=== PATIENT | female | born 1935 | race Caucasian/White ===

== ENCOUNTER 2018-10-05 11:32 | Inpatient (IN) ==
[2018-10-05] MEDS ORDERED: ONDANSETRON 4 MG/2 ML VIAL IV STA (11:42)
[2018-10-05] MEDS ORDERED: SODIUM CHLORIDE 0.9% 1,000 ML IV STA ×2 (11:42→13:17)
[2018-10-05] MEDS ORDERED: fentaNYL 100 MCG/2 ML VIAL IV STA (11:43)
[2018-10-05 11:54] LABS: Basophils % 0.1 % (0.0-0.8); Hematocrit 30.9 VOL% (35.7-47.0); Hemoglobin 9.4 GM/DL (12.0-16.0); Immature Granulocytes % 0.6 %; Immature Granulocytes Absolute 0.09 #; Lymphocytes # 0.6 10*3/uL (1.4-4.0); Lymphocytes % 3.7 % (21.3-54.2); Mean Corpuscular HGB Conc 30.4 GM/DL (32-36); Mean Corpuscular Volume 96.6 FL (87-102); Monocytes % 12.5 % (1.7-12.7); Neutrophils % 83.1 % (38.7-73.9); Platelet Count 356 T/CUMM (130-400); Red Cell Distribution Width 16.2 % (9.3-17.3); White Blood Count 15.6 T/CUMM (4-12)
[2018-10-05 12:13] LABS: Apearance,Urine Slightly Hazy (Clear); Bacteria,Urine Many /HPF (Few); Bilirubin,Urine Negative (Negative); Blood, Urine Negative (Negative); Glucose,Urine (UA) Negative (Negative); Hyaline Casts,Urine 13 /LPF (0-3); Ketones,Urine Negative (Negative); Mucus,Urine Few /LPF (Occasional); Nitrite,Urine Negative (Negative); Protein,Urine Negative; Urine Color Yellow (Yellow); Urine Specific Gravity 1.015 (1.001-1.035); Urine Urobilinogen < 2.0 EU/DL (0.2-1.0); WBC,Urine 4 /HPF (0-6)
[2018-10-05 12:15] LABS: Alanine Aminotransferase 13 U/L (13-56); Alkaline Phosphatase 74 U/L (45-117); Aspartate Amino Transferase 19 U/L (0-37); Blood Urea Nitrogen 38 MG/DL (7-18); Calcium 8.4 MG/DL (8.5-10.1); Glucose 179 MG/DL (74-106); Osmolality,Calculated 289.5 MOS/KG (273-304); Total Protein 5.5 G/DL (6.4-8.3)
[2018-10-05] MEDS ORDERED: PIPERACILLIN/TAZOBACTAM 3,375 MG in SODIUM CHLORIDE 0.9% 100 ML IV STA (12:19)
[2018-10-05 12:20] LABS: Band Neutrophils 29 % (0-10); Lymphocytes 4 % (20-55); Platelet Estimate Normal; Segmented Neutrophils 59 % (50-85); Total Cells Counted 100
[2018-10-05 12:21] LABS: Anisocytosis 1+; Giant Platelets Few; Poikilocytosis 1+
[2018-10-05] MEDS ORDERED: ALBUTEROL/IPRATROPIUM 3 ML NEB RESP TX PRN (13:22)
[2018-10-05] MEDS ORDERED: ACETAMINOPHEN 325 MG TABLET PO PRN (13:22)
[2018-10-05] MEDS ORDERED: ONDANSETRON 4 MG/2 ML VIAL IV PRN (13:22)
[2018-10-05] MEDS ORDERED: SODIUM CHLORIDE 0.9% 1,900 ML IV ONE (13:26)
[2018-10-05] MEDS ORDERED: VANCOMYCIN INJ 1,000 MG in SODIUM CHLORIDE 0.9% 250 ML IV PRN (13:30)
[2018-10-05] MEDS ORDERED: LIDOCAINE 1%/EPI INJ 20 ML VIAL ONE (13:44)
[2018-10-05] MEDS ORDERED: BUPIVACAINE MPF 0.25% /EPI 30 ML VIAL ONE (13:44)
[2018-10-05] MEDS ORDERED: DEXTROSE 50% 25 GM/50 ML VIAL IV PRN (13:50)
[2018-10-05] MEDS ORDERED: GLUCAGON 1 MG VIAL IM PRN (13:50)
[2018-10-05] MEDS: LACTATED RINGERS 1,000 ML IV SCH ×4 (14:00→22:11)
[2018-10-05] MEDS ORDERED: ALBUMIN 5% 12.5 GM/250 ML VIAL IV ONE (14:30)
[2018-10-05] MEDS ORDERED: CALCIUM CHLORIDE 1,000 MG/10 ML VIAL IV ONE (14:30)
[2018-10-05] MEDS ORDERED: SUGAMMADEX 200 MG/2 ML VIAL IV ONE (15:10)
[2018-10-05] MEDS ORDERED: GENTAMICIN INJ 80 MG in PREMIX 1 EACH IV PRN (15:12)
[2018-10-05] MEDS ORDERED: DESFLURANE 1 UNIT/15 MINUTE INH ONE (15:37)
[2018-10-05] MEDS ORDERED: ETOMIDATE 40 MG/20 ML VIAL IV ONE (15:38)
[2018-10-05] MEDS ORDERED: LACTATED RINGERS 1,000 ML IV ONE (15:38)
[2018-10-05] MEDS ORDERED: ONDANSETRON 4 MG/2 ML VIAL ONE (15:38)
[2018-10-05] MEDS ORDERED: fentaNYL 100 MCG/2 ML VIAL ONE ×2 (15:38)
[2018-10-05] MEDS ORDERED: ROCURONIUM 100 MG/10 ML VIAL IV ONE (15:38)
[2018-10-05 15:45] LABS: Apearance,Urine Slightly Hazy (Clear); Bacteria,Urine Many /HPF (Few); Bilirubin,Urine Negative (Negative); Blood, Urine Negative (Negative); Glucose,Urine (UA) Negative (Negative); Hyaline Casts,Urine 5 /LPF (0-3); Ketones,Urine Negative (Negative); Mucus,Urine Occasional /LPF (Occasional); Nitrite,Urine Negative (Negative); Protein,Urine Negative; RBC,Urine 3 /HPF (0-4); Urine Color Yellow (Yellow); Urine Specific Gravity 1.016 (1.001-1.035); Urine Urobilinogen < 2.0 EU/DL (0.2-1.0); WBC,Urine <1 /HPF (0-6)
[2018-10-05] MEDS ORDERED: GENTAMICIN INJ 180 MG in SODIUM CHLORIDE 0.9% 100 ML IV ONE (16:00)
[2018-10-05] MEDS ORDERED: VANCOMYCIN INJ 1,000 MG in SODIUM CHLORIDE 0.9% 250 ML IV ONE (17:00)
[2018-10-05] MEDS ORDERED: MAGNESIUM SULF RIDER 4 GM in PREMIX 1 EACH IV PRN (17:39)
[2018-10-05] MEDS: HYDROmorphone 2 MG/1 ML VIAL IV PRN ×3 (18:17→22:10)
[2018-10-05] MEDS: INSULIN LISPRO 100 UNIT/ML SUBCUT SCH ×2 (18:49→20:10)
[2018-10-06] MEDS: INSULIN LISPRO 100 UNIT/ML SUBCUT SCH ×6 (01:09→20:58)
[2018-10-06] MEDS: PIPERACILLIN/TAZOBACTAM 3,375 MG in SODIUM CHLORIDE 0.9% 100 ML IV SCH ×2 (01:16→11:40)
[2018-10-06] MEDS: HYDROmorphone 2 MG/1 ML VIAL IV PRN ×5 (02:20→20:57)
[2018-10-06 05:11] LABS: Basophils % 0.1 % (0.0-0.8); Hematocrit 23.8 VOL% (35.7-47.0); Hemoglobin 7.2 GM/DL (12.0-16.0); Immature Granulocytes % 0.6 %; Immature Granulocytes Absolute 0.05 #; Lymphocytes # 0.7 10*3/uL (1.4-4.0); Lymphocytes % 9.1 % (21.3-54.2); Mean Corpuscular HGB Conc 30.3 GM/DL (32-36); Mean Corpuscular Volume 96.7 FL (87-102); Mean Platelet Volume 10.7 FL (9.6-12.0); Monocytes % 10.9 % (1.7-12.7); Neutrophils % 79.3 % (38.7-73.9); Platelet Count 178 T/CUMM (130-400); Red Blood Count 2.46 MC/CUMM (3.8-5.5); Red Cell Distribution Width 16.3 % (9.3-17.3); White Blood Count 8.1 T/CUMM (4-12)
[2018-10-06 05:39] LABS: Band Neutrophils 4 % (0-10); Hypochromasia 1+; Lymphocytes 10 % (20-55); Platelet Estimate Normal; Reactive Lymphocytes Few; Segmented Neutrophils 78 % (50-85); Total Cells Counted 100
[2018-10-06 05:46] LABS: Albumin 2.6 G/DL (3.4-5.0); Bilirubin,Total 0.6 MG/DL (0.2-1.0); Calcium 8.6 MG/DL (8.5-10.1); Osmolality,Calculated 289.1 MOS/KG (273-304); Total Protein 4.9 G/DL (6.4-8.3)
[2018-10-06] MEDS: MAGNESIUM SULF RIDER 2 GM in PREMIX 1 EACH IV PRN (06:45)
[2018-10-06] MEDS: LACTATED RINGERS 1,000 ML IV SCH ×4 (06:45→21:35)
[2018-10-06] MEDS: PANTOPRAZOLE 40 MG VIAL IV SCH (08:38)
[2018-10-06] MEDS ORDERED: SODIUM CHLORIDE 0.9% 1,000 ML IV PRN (09:01)
[2018-10-06 16:41] LABS: Hematocrit 30.9 VOL% (35.7-47.0)
[2018-10-06 16:44] LABS: Hemoglobin 9.9 GM/DL (12.0-16.0)
[2018-10-06 22:51] LABS: Hematocrit 30.3 VOL% (35.7-47.0); Hemoglobin 9.5 GM/DL (12.0-16.0)
[2018-10-07] MEDS: LACTATED RINGERS 1,000 ML IV SCH ×4 (00:05→13:30)
[2018-10-07] MEDS: HYDROmorphone 2 MG/1 ML VIAL IV PRN ×5 (00:32→19:39)
[2018-10-07] MEDS: INSULIN LISPRO 100 UNIT/ML SUBCUT SCH ×6 (00:45→22:20)
[2018-10-07] MEDS ORDERED: DEXTROSE 10% 250 ML IV ONE (00:50)
[2018-10-07] MEDS: DEXTROSE 10% 250 ML BAG IV PRN ×2 (01:00→04:22)
[2018-10-07] MEDS: PIPERACILLIN/TAZOBACTAM 3,375 MG in SODIUM CHLORIDE 0.9% 100 ML IV SCH ×2 (02:35→13:39)
[2018-10-07 06:01] LABS: Basophils % 0.2 % (0.0-0.8); Eosinophils % 0.1 % (0.00-10.9); Hematocrit 30.8 VOL% (35.7-47.0); Hemoglobin 9.6 GM/DL (12.0-16.0); Immature Granulocytes % 0.8 %; Immature Granulocytes Absolute 0.07 #; Lymphocytes # 0.5 10*3/uL (1.4-4.0); Lymphocytes % 5.4 % (21.3-54.2); Mean Corpuscular HGB Conc 31.2 GM/DL (32-36); Mean Corpuscular Volume 94.2 FL (87-102); Mean Platelet Volume 10.5 FL (9.6-12.0); Monocytes % 9.1 % (1.7-12.7); Neutrophils % 84.4 % (38.7-73.9); Platelet Count 193 T/CUMM (130-400); Red Blood Count 3.27 MC/CUMM (3.8-5.5); Red Cell Distribution Width 16.3 % (9.3-17.3); White Blood Count 9.2 T/CUMM (4-12)
[2018-10-07 06:11] LABS: Gentamicin,Random 0.7 UG/ML; Vancomycin,Random 5.1 UG/ML
[2018-10-07] MEDS: PANTOPRAZOLE 40 MG VIAL IV SCH (09:07)
[2018-10-07 10:34] LABS: Calcium 8.3 MG/DL (8.5-10.1); Osmolality,Calculated 290.1 MOS/KG (273-304)
[2018-10-07] MEDS: VANCOMYCIN INJ 1,000 MG in SODIUM CHLORIDE 0.9% 250 ML IV SCH (10:48)
[2018-10-07] MEDS: FLUCONAZOLE INJ 200 MG in PREMIX 1 EACH IV SCH (12:14)
[2018-10-07] MEDS: SODIUM HYPOCHLORITE 0.25% IRRIG 473 ML BOTTLE TOP SCH (15:23)
[2018-10-08] MEDS: METOPROLOL TARTRATE 5 MG/5 ML VIAL IV PRN ×2 (00:09→13:03)
[2018-10-08] MEDS: LACTATED RINGERS 1,000 ML IV SCH ×2 (00:52→22:31)
[2018-10-08] MEDS: INSULIN LISPRO 100 UNIT/ML SUBCUT SCH ×6 (00:52→21:10)
[2018-10-08] MEDS: PIPERACILLIN/TAZOBACTAM 3,375 MG in SODIUM CHLORIDE 0.9% 100 ML IV SCH ×2 (02:43→13:52)
[2018-10-08] MEDS: HYDROmorphone 2 MG/1 ML VIAL IV PRN ×2 (06:29→19:32)
[2018-10-08] MEDS: DEXTROSE 10% 250 ML BAG IV PRN (08:29)
[2018-10-08] MEDS: PANTOPRAZOLE 40 MG VIAL IV SCH (09:45)
[2018-10-08] MEDS: SODIUM HYPOCHLORITE 0.25% IRRIG 473 ML BOTTLE TOP SCH (09:58)
[2018-10-08] MEDS: CHLORHEXIDINE 4% SOLN 118 ML BOTTLE TOP SCH (09:59)
[2018-10-08] MEDS: VANCOMYCIN INJ 1,000 MG in SODIUM CHLORIDE 0.9% 250 ML IV SCH (11:33)
[2018-10-08] MEDS: FLUCONAZOLE INJ 200 MG in PREMIX 1 EACH IV SCH (12:42)
[2018-10-08] MEDS ORDERED: cloNIDine 0.1 MG TABLET PO PRN (13:34)
[2018-10-08] MEDS: amLODIPine 10 MG TABLET PO SCH (13:52)
[2018-10-08] MEDS: SERTRALINE 100 MG TABLET PO SCH (21:31)
[2018-10-08] MEDS: METOPROLOL TARTRATE 25 MG TABLET PO SCH (21:31)
[2018-10-09] MEDS: INSULIN LISPRO 100 UNIT/ML SUBCUT SCH ×6 (01:03→20:12)
[2018-10-09] MEDS: PIPERACILLIN/TAZOBACTAM 3,375 MG in SODIUM CHLORIDE 0.9% 100 ML IV SCH ×3 (01:05→22:14)
[2018-10-09 05:27] LABS: Basophils % 0.4 % (0.0-0.8); Eosinophils # 0.2 10*3/uL (0.0-0.87); Eosinophils % 1.9 % (0.00-10.9); Hematocrit 33.3 VOL% (35.7-47.0); Hemoglobin 10.7 GM/DL (12.0-16.0); Immature Granulocytes % 2.1 %; Immature Granulocytes Absolute 0.21 #; Lymphocytes # 0.8 10*3/uL (1.4-4.0); Lymphocytes % 8.4 % (21.3-54.2); Mean Corpuscular HGB Conc 32.1 GM/DL (32-36); Mean Platelet Volume 9.8 FL (9.6-12.0); Monocytes % 10.5 % (1.7-12.7); Neutrophils % 76.7 % (38.7-73.9); Platelet Count 224 T/CUMM (130-400); Red Blood Count 3.66 MC/CUMM (3.8-5.5); Red Cell Distribution Width 15.4 % (9.3-17.3); White Blood Count 9.9 T/CUMM (4-12)
[2018-10-09 05:59] LABS: Albumin 2.1 G/DL (3.4-5.0); Calcium 8.8 MG/DL (8.5-10.1); Osmolality,Calculated 281.3 MOS/KG (273-304); Total Protein 5.4 G/DL (6.4-8.3)
[2018-10-09] MEDS: POTASSIUM CHLORIDE RIDER 10 MEQ in PREMIX 1 EACH IV PRN ×5 (06:33→18:23)
[2018-10-09] MEDS: PANTOPRAZOLE 40 MG VIAL IV SCH (08:41)
[2018-10-09] MEDS: buPROPion SR 150 MG TABLET PO SCH (09:12)
[2018-10-09] MEDS: METOPROLOL TARTRATE 25 MG TABLET PO SCH ×2 (09:13→20:26)
[2018-10-09] MEDS: LOSARTAN 50 MG TABLET PO SCH (09:16)
[2018-10-09] MEDS: SERTRALINE 100 MG TABLET PO SCH ×2 (09:16→20:26)
[2018-10-09] MEDS: amLODIPine 10 MG TABLET PO SCH (09:16)
[2018-10-09] MEDS: SODIUM HYPOCHLORITE 0.25% IRRIG 473 ML BOTTLE TOP SCH (09:45)
[2018-10-09] MEDS: CHLORHEXIDINE 4% SOLN 118 ML BOTTLE TOP SCH (09:45)
[2018-10-09] MEDS: VANCOMYCIN INJ 1,000 MG in SODIUM CHLORIDE 0.9% 250 ML IV SCH (12:21)
[2018-10-09] MEDS: FLUCONAZOLE INJ 200 MG in PREMIX 1 EACH IV SCH (13:34)
[2018-10-09] MEDS: PHENOL 1.4% THROAT SPRAY 177 ML BOTTLE PO PRN ×2 (18:09→20:26)
[2018-10-10] MEDS: INSULIN LISPRO 100 UNIT/ML SUBCUT SCH ×6 (00:42→21:27)
[2018-10-10 05:45] LABS: Basophils # 0.1 10*3/uL (0.0-0.2); Basophils % 0.6 % (0.0-0.8); Eosinophils # 0.2 10*3/uL (0.0-0.87); Eosinophils % 2.2 % (0.00-10.9); Hematocrit 33.2 VOL% (35.7-47.0); Hemoglobin 10.5 GM/DL (12.0-16.0); Immature Granulocytes % 3.7 %; Immature Granulocytes Absolute 0.33 #; Lymphocytes # 1.1 10*3/uL (1.4-4.0); Lymphocytes % 11.7 % (21.3-54.2); Mean Corpuscular HGB Conc 31.6 GM/DL (32-36); Mean Corpuscular Volume 92.7 FL (87-102); Mean Platelet Volume 10.2 FL (9.6-12.0); Monocytes % 13.3 % (1.7-12.7); Neutrophils % 68.5 % (38.7-73.9); Platelet Count 246 T/CUMM (130-400); Red Blood Count 3.58 MC/CUMM (3.8-5.5); Red Cell Distribution Width 15.6 % (9.3-17.3)
[2018-10-10 05:59] LABS: Albumin 2.1 G/DL (3.4-5.0); Bilirubin,Total 0.4 MG/DL (0.2-1.0); Calcium 8.5 MG/DL (8.5-10.1); Osmolality,Calculated 279.3 MOS/KG (273-304); Total Protein 5.2 G/DL (6.4-8.3)
[2018-10-10] MEDS: PIPERACILLIN/TAZOBACTAM 3,375 MG in SODIUM CHLORIDE 0.9% 100 ML IV SCH (06:33)
[2018-10-10] MEDS: METOPROLOL TARTRATE 25 MG TABLET PO SCH ×2 (08:12→21:27)
[2018-10-10] MEDS: buPROPion SR 150 MG TABLET PO SCH (08:12)
[2018-10-10] MEDS: SERTRALINE 100 MG TABLET PO SCH ×2 (08:12→21:27)
[2018-10-10] MEDS: LOSARTAN 50 MG TABLET PO SCH (08:12)
[2018-10-10] MEDS: PANTOPRAZOLE 40 MG VIAL IV SCH (08:12)
[2018-10-10] MEDS: CHLORHEXIDINE 4% SOLN 118 ML BOTTLE TOP SCH (08:13)
[2018-10-10] MEDS: amLODIPine 10 MG TABLET PO SCH (08:13)
[2018-10-10] MEDS: SODIUM HYPOCHLORITE 0.25% IRRIG 473 ML BOTTLE TOP SCH (08:13)
[2018-10-10] MEDS: LACTATED RINGERS 1,000 ML IV SCH ×4 (08:13→09:54)
[2018-10-10] MEDS: FLUCONAZOLE INJ 200 MG in PREMIX 1 EACH IV SCH (09:30)
[2018-10-10] MEDS: cefTRIAXone 1,000 MG in SYRINGE 1 EACH IV SCH (09:30)
[2018-10-10] MEDS: POTASSIUM CHLORIDE RIDER 10 MEQ in PREMIX 1 EACH IV PRN ×4 (09:31→18:49)
[2018-10-10] MEDS: MAGNESIUM SULF RIDER 2 GM in PREMIX 1 EACH IV PRN (22:35)
[2018-10-10] MEDS: HYDROmorphone 2 MG/1 ML VIAL IV PRN (22:35)
[2018-10-11] MEDS: INSULIN LISPRO 100 UNIT/ML SUBCUT SCH ×6 (00:25→21:19)
[2018-10-11] MEDS: MAGNESIUM SULF RIDER 2 GM in PREMIX 1 EACH IV PRN (04:48)
[2018-10-11 05:34] LABS: Basophils % 0.4 % (0.0-0.8); Eosinophils # 0.2 10*3/uL (0.0-0.87); Eosinophils % 2.4 % (0.00-10.9); Hematocrit 30.5 VOL% (35.7-47.0); Hemoglobin 9.7 GM/DL (12.0-16.0); Immature Granulocytes Absolute 0.36 #; Lymphocytes # 1.4 10*3/uL (1.4-4.0); Lymphocytes % 15.8 % (21.3-54.2); Mean Corpuscular HGB Conc 31.8 GM/DL (32-36); Mean Corpuscular Volume 93.3 FL (87-102); Monocytes % 12.1 % (1.7-12.7); Neutrophils % 65.3 % (38.7-73.9); Platelet Count 226 T/CUMM (130-400); Red Blood Count 3.27 MC/CUMM (3.8-5.5); Red Cell Distribution Width 15.6 % (9.3-17.3)
[2018-10-11 05:55] LABS: Calcium 7.9 MG/DL (8.5-10.1); Osmolality,Calculated 279.3 MOS/KG (273-304)
[2018-10-11] MEDS: cefTRIAXone 1,000 MG in SYRINGE 1 EACH IV SCH (09:00)
[2018-10-11] MEDS: PANTOPRAZOLE 40 MG VIAL IV SCH (09:00)
[2018-10-11] MEDS: METOPROLOL TARTRATE 25 MG TABLET PO SCH ×2 (09:01→21:08)
[2018-10-11] MEDS: LOSARTAN 50 MG TABLET PO SCH (09:01)
[2018-10-11] MEDS: buPROPion SR 150 MG TABLET PO SCH (09:01)
[2018-10-11] MEDS: SERTRALINE 100 MG TABLET PO SCH ×2 (09:01→21:08)
[2018-10-11] MEDS: amLODIPine 10 MG TABLET PO SCH (09:01)
[2018-10-11] MEDS: CHLORHEXIDINE 4% SOLN 118 ML BOTTLE TOP SCH (09:02)
[2018-10-11] MEDS: FLUCONAZOLE INJ 200 MG in PREMIX 1 EACH IV SCH (09:16)
[2018-10-11] MEDS: HYDROmorphone 2 MG/1 ML VIAL IV PRN ×4 (09:53→21:14)
[2018-10-11] MEDS: POTASSIUM CHLORIDE RIDER 10 MEQ in PREMIX 1 EACH IV PRN (13:48)
[2018-10-12] MEDS: INSULIN LISPRO 100 UNIT/ML SUBCUT SCH ×6 (00:15→20:00)
[2018-10-12] MEDS: POTASSIUM CHLORIDE RIDER 10 MEQ in PREMIX 1 EACH IV PRN (07:15)
[2018-10-12] MEDS: cefTRIAXone 1,000 MG in SYRINGE 1 EACH IV SCH (09:24)
[2018-10-12] MEDS: PANTOPRAZOLE 40 MG VIAL IV SCH (09:24)
[2018-10-12] MEDS: SERTRALINE 100 MG TABLET PO SCH ×2 (09:25→21:38)
[2018-10-12] MEDS: buPROPion SR 150 MG TABLET PO SCH (09:25)
[2018-10-12] MEDS: amLODIPine 10 MG TABLET PO SCH (09:25)
[2018-10-12] MEDS: METOPROLOL TARTRATE 25 MG TABLET PO SCH ×2 (09:26→21:38)
[2018-10-12] MEDS: FLUCONAZOLE INJ 200 MG in PREMIX 1 EACH IV SCH (09:26)
[2018-10-12] MEDS: LOSARTAN 50 MG TABLET PO SCH (09:26)
[2018-10-12] MEDS: CHLORHEXIDINE 4% SOLN 118 ML BOTTLE TOP SCH (09:27)
[2018-10-12 09:49] LABS: Hematocrit 34.7 VOL% (35.7-47.0); Hemoglobin 10.7 GM/DL (12.0-16.0)
[2018-10-12] MEDS ORDERED: TUBERCULIN SKIN TEST 0.1 ML SYRINGE INTRADERM ONE (12:00)
[2018-10-12] MEDS ORDERED: POTASSIUM CHLORIDE 20 MEQ TABLET PO PRN (14:57)
[2018-10-12] MEDS: HYDROmorphone 2 MG/1 ML VIAL IV PRN (21:45)
[2018-10-13] MEDS: HYDROmorphone 2 MG/1 ML VIAL IV PRN (01:10)
[2018-10-13] MEDS: INSULIN LISPRO 100 UNIT/ML SUBCUT SCH ×5 (04:00→16:25)
[2018-10-13] MEDS: CHLORHEXIDINE 4% SOLN 118 ML BOTTLE TOP SCH (09:00)
[2018-10-13] MEDS: amLODIPine 10 MG TABLET PO SCH (09:23)
[2018-10-13] MEDS: METOPROLOL TARTRATE 25 MG TABLET PO SCH (09:23)
[2018-10-13] MEDS: SERTRALINE 100 MG TABLET PO SCH (09:23)
[2018-10-13] MEDS: buPROPion SR 150 MG TABLET PO SCH (09:24)
[2018-10-13] MEDS: PANTOPRAZOLE 40 MG VIAL IV SCH (09:24)
[2018-10-13] MEDS: LOSARTAN 50 MG TABLET PO SCH (09:24)
[2018-10-13] MEDS: cefTRIAXone 1,000 MG in SYRINGE 1 EACH IV SCH (09:28)
[2018-10-13] MEDS: FLUCONAZOLE INJ 200 MG in PREMIX 1 EACH IV SCH (09:40)
[2018-10-13 11:10] VITALS: BP 155/87
== END 2018-10-13 16:20 | DRG 326 ==
LOC: EDUNIT# → N.ED 11:32 → N.EDINP 13:22 → N.ICU 14:51 → N.3E 10-06 14:32
PROVIDERS: ADMIT Surgery; ATTEND Surgery

== ENCOUNTER 2018-12-29 18:32 | Inpatient (IN) ==
[2018-12-29] MEDS ORDERED: ONDANSETRON 4 MG/2 ML VIAL IV STA (18:51)
[2018-12-29] MEDS ORDERED: KETOROLAC 30 MG/1 ML VIAL IV STA (18:51)
[2018-12-29] MEDS ORDERED: MAGNESIUM HYDROXIDE SUSP 30 ML UDCUP PO PRN (21:10)
[2018-12-29] MEDS ORDERED: ceFAZolin 1,000 MG in SYRINGE 1 EACH IV ONE (21:10)
[2018-12-29] MEDS ORDERED: fentaNYL 100 MCG/2 ML VIAL IV PRN (21:10)
[2018-12-29 21:14] LABS: Basophils # 0.1 10*3/uL (0.0-0.2); Basophils % 0.3 % (0.0-0.8); Eosinophils # 0.1 10*3/uL (0.0-0.87); Eosinophils % 0.7 % (0.00-10.9); Hematocrit 32.3 VOL% (35.7-47.0); Hemoglobin 10.1 GM/DL (12.0-16.0); Immature Granulocytes % 1.2 %; Immature Granulocytes Absolute 0.22 #; Lymphocytes # 2.9 10*3/uL (1.4-4.0); Lymphocytes % 15.9 % (21.3-54.2); Mean Corpuscular HGB Conc 31.3 GM/DL (32-36); Mean Corpuscular Volume 89.2 FL (87-102); Monocytes % 9.3 % (1.7-12.7); Neutrophils % 72.6 % (38.7-73.9); Platelet Count 358 T/CUMM (130-400); Red Blood Count 3.62 MC/CUMM (3.8-5.5); Red Cell Distribution Width 15.2 % (9.3-17.3); White Blood Count 18.4 T/CUMM (4-12)
[2018-12-29 21:18] LABS: INR 0.9; PT Patient Result 10.3 SECS (9.6-12.2)
[2018-12-29 21:27] LABS: Alanine Aminotransferase 15 U/L (13-56); Albumin 3.5 G/DL (3.4-5.0); Alkaline Phosphatase 96 U/L (45-117); Aspartate Amino Transferase 20 U/L (0-37); Bilirubin,Total < 0.39 MG/DL (0.2-1.0); Blood Urea Nitrogen 19 MG/DL (7-18); Calcium 9.6 MG/DL (8.5-10.1); Estimated Glom Filtration Rate 43 ML/MIN; Glucose 112 MG/DL (74-106); Osmolality,Calculated 275.8 MOS/KG (273-304); Total Protein 7.7 G/DL (6.4-8.3)
[2018-12-29] MEDS: hydrALAZINE 25 MG TABLET PO SCH (22:31)
[2018-12-29] MEDS: METOPROLOL TARTRATE 25 MG TABLET PO SCH (22:31)
[2018-12-29] MEDS: SERTRALINE 100 MG TABLET PO SCH (22:31)
[2018-12-29] MEDS: MAGNESIUM CHLORIDE 64 MG TABLET PO SCH (22:31)
[2018-12-29] MEDS: SODIUM CHLORIDE 0.9% 1,000 ML IV SCH (22:32)
[2018-12-29] MEDS: LATANOPROST 0.005% OPH SOLN 2.5 ML BOTTLE BOTH EYES SCH (23:20)
[2018-12-30] MEDS: SODIUM CHLORIDE 0.9% 1,000 ML IV SCH ×3 (07:12→19:42)
[2018-12-30] MEDS: amLODIPine 10 MG TABLET PO SCH (08:00)
[2018-12-30] MEDS: hydrALAZINE 25 MG TABLET PO SCH ×2 (08:00→20:54)
[2018-12-30] MEDS ORDERED: ceFAZolin 1,000 MG in SYRINGE 1 EACH IV ONE (08:00)
[2018-12-30] MEDS: METOPROLOL TARTRATE 25 MG TABLET PO SCH ×2 (08:00→20:54)
[2018-12-30] MEDS ORDERED: ROPIVACAINE 0.5% 30 ML VIAL ONE (09:36)
[2018-12-30] MEDS ORDERED: NEOMYCIN/POLYMYXIN/BACITRACIN OINT 28.4 GM TUBE TOP ONE (09:38)
[2018-12-30] MEDS ORDERED: ONDANSETRON 4 MG/2 ML VIAL ONE (10:09)
[2018-12-30] MEDS ORDERED: DEXAMETHASONE 4 MG/1 ML VIAL ONE (10:09)
[2018-12-30] MEDS ORDERED: PROPOFOL 200 MG/20 ML VIAL IV ONE (10:09)
[2018-12-30] MEDS ORDERED: LIDOCAINE 2% 5 ML VIAL ONE (10:09)
[2018-12-30] MEDS ORDERED: fentaNYL 100 MCG/2 ML VIAL ONE (10:09)
[2018-12-30] MEDS ORDERED: SEVOFLURANE 1 UNIT/15 MINUTE INH ONE (10:09)
[2018-12-30] MEDS ORDERED: KETOROLAC 30 MG/1 ML VIAL ONE (10:09)
[2018-12-30] MEDS ORDERED: ACETAMINOPHEN 1,000 MG/100 ML VIAL IV ONE (10:10)
[2018-12-30] MEDS ORDERED: GLYCOPYRROLATE 0.4 MG/2 ML VIAL ONE (10:10)
[2018-12-30] MEDS ORDERED: PHENYLEPHRINE 1 MG/10 ML SYRINGE IV ONE (10:10)
[2018-12-30] MEDS: HYDROmorphone 2 MG/1 ML VIAL IV PRN (13:40)
[2018-12-30] MEDS: ONDANSETRON 4 MG/2 ML VIAL IV PRN (13:41)
[2018-12-30] MEDS: MAGNESIUM CHLORIDE 64 MG TABLET PO SCH ×2 (16:09→20:54)
[2018-12-30] MEDS: SERTRALINE 100 MG TABLET PO SCH ×2 (16:09→20:54)
[2018-12-30] MEDS: buPROPion SR 150 MG TABLET PO SCH (16:10)
[2018-12-30] MEDS: ceFAZolin 1,000 MG in SYRINGE 1 EACH IV SCH ×2 (16:16→23:45)
[2018-12-30] MEDS: LOSARTAN 50 MG TABLET PO SCH (19:48)
[2018-12-30] MEDS: LATANOPROST 0.005% OPH SOLN 2.5 ML BOTTLE BOTH EYES SCH (20:54)
[2018-12-31] MEDS: FONDAPARINUX 2.5 MG/0.5 ML SYRINGE SUBCUT SCH (03:44)
[2018-12-31 05:16] LABS: Basophils % 0.2 % (0.0-0.8); Hematocrit 24.7 VOL% (35.7-47.0); Hemoglobin 7.7 GM/DL (12.0-16.0); Immature Granulocytes % 1.2 %; Immature Granulocytes Absolute 0.18 #; Lymphocytes # 1.1 10*3/uL (1.4-4.0); Lymphocytes % 6.9 % (21.3-54.2); Mean Corpuscular HGB Conc 31.2 GM/DL (32-36); Mean Corpuscular Volume 91.1 FL (87-102); Monocytes % 8.4 % (1.7-12.7); Neutrophils % 83.3 % (38.7-73.9); Platelet Count 244 T/CUMM (130-400); Red Blood Count 2.71 MC/CUMM (3.8-5.5); Red Cell Distribution Width 15.3 % (9.3-17.3); White Blood Count 15.5 T/CUMM (4-12)
[2018-12-31] MEDS: HYDROmorphone 2 MG/1 ML VIAL IV PRN ×2 (05:31→16:14)
[2018-12-31] MEDS: buPROPion SR 150 MG TABLET PO SCH (10:22)
[2018-12-31] MEDS: MAGNESIUM CHLORIDE 64 MG TABLET PO SCH ×2 (10:22→21:20)
[2018-12-31] MEDS: hydrALAZINE 25 MG TABLET PO SCH ×2 (10:23→21:21)
[2018-12-31] MEDS: SERTRALINE 100 MG TABLET PO SCH ×2 (10:23→21:20)
[2018-12-31] MEDS: METOPROLOL TARTRATE 25 MG TABLET PO SCH ×2 (10:23→21:20)
[2018-12-31] MEDS: amLODIPine 10 MG TABLET PO SCH (10:25)
[2018-12-31] MEDS ORDERED: diphenhydrAMINE CAP 25 MG CAPSULE PO PRN (10:54)
[2018-12-31] MEDS ORDERED: traMADol 50 MG TABLET PO PRN (12:00)
[2018-12-31 14:13] LABS: Hematocrit 26.6 VOL% (35.7-47.0); Hemoglobin 8.1 GM/DL (12.0-16.0)
[2018-12-31] MEDS: LOSARTAN 50 MG TABLET PO SCH (18:15)
[2018-12-31] MEDS ORDERED: methylPREDNISolone SOD SUC 40 MG/1 ML VIAL IV ONE (20:00)
[2018-12-31] MEDS ORDERED: LORazepam 2 MG/1 ML VIAL IV ONE (20:00)
[2018-12-31] MEDS: ALBUTEROL/IPRATROPIUM 3 ML NEB RESP TX PRN ×2 (20:13→20:31)
[2018-12-31 20:38] LABS: ABG Base Excess -4.4 MMOL/L (-2.5-2.5); ABG Oxygen Saturation 86.4 % (95-100); ABG PCO2 39.7 MM HG (35-48); ABG PH 7.341 (7.35-7.45); ABG PO2 54.6 MM HG (80-95); ABG TCO2 22.2 MMOL/L (23-27); Allen Test Positive; Pt O2 Delivery Device Simple Mask
[2018-12-31] MEDS ORDERED: FUROSEMIDE 20 MG/2 ML VIAL IV ONE ×2 (20:45→21:15)
[2018-12-31] MEDS: LATANOPROST 0.005% OPH SOLN 2.5 ML BOTTLE BOTH EYES SCH (21:19)
[2019-01-01 04:35] LABS: Basophils # 0.1 10*3/uL (0.0-0.2); Basophils % 0.3 % (0.0-0.8); Hematocrit 25.4 VOL% (35.7-47.0); Hemoglobin 7.8 GM/DL (12.0-16.0); Immature Granulocytes % 1.2 %; Immature Granulocytes Absolute 0.24 #; Lymphocytes # 0.8 10*3/uL (1.4-4.0); Lymphocytes % 3.6 % (21.3-54.2); Mean Corpuscular HGB Conc 30.7 GM/DL (32-36); Mean Platelet Volume 9.8 FL (9.6-12.0); Monocytes % 4.8 % (1.7-12.7); Neutrophils % 90.1 % (38.7-73.9); Platelet Count 246 T/CUMM (130-400); Red Blood Count 2.79 MC/CUMM (3.8-5.5); Red Cell Distribution Width 15.2 % (9.3-17.3); White Blood Count 20.7 T/CUMM (4-12)
[2019-01-01] MEDS: FONDAPARINUX 2.5 MG/0.5 ML SYRINGE SUBCUT SCH (04:47)
[2019-01-01 04:55] LABS: Lymphocytes 4 % (20-55); Segmented Neutrophils 94 % (50-85); Total Cells Counted 100
[2019-01-01 04:56] LABS: Hypochromasia 1+; Microcytosis Slight; Ovalocytes Slight; Platelet Estimate Normal
[2019-01-01] MEDS ORDERED: SODIUM CHLORIDE 0.9% 1,000 ML IV PRN (06:54)
[2019-01-01] MEDS ORDERED: FUROSEMIDE 20 MG/2 ML VIAL IV ONE (06:56)
[2019-01-01] MEDS ORDERED: ACETAMINOPHEN 325 MG TABLET PO ONE (06:56)
[2019-01-01] MEDS: MAGNESIUM CHLORIDE 64 MG TABLET PO SCH ×2 (10:32→20:48)
[2019-01-01] MEDS: buPROPion SR 150 MG TABLET PO SCH (10:32)
[2019-01-01] MEDS: SERTRALINE 100 MG TABLET PO SCH ×2 (10:33→20:48)
[2019-01-01] MEDS: METOPROLOL TARTRATE 25 MG TABLET PO SCH ×2 (10:33→20:48)
[2019-01-01] MEDS: hydrALAZINE 25 MG TABLET PO SCH ×2 (10:33→20:48)
[2019-01-01] MEDS: amLODIPine 10 MG TABLET PO SCH (10:39)
[2019-01-01] MEDS ORDERED: FUROSEMIDE 20 MG/2 ML VIAL ONE (17:01)
[2019-01-01] MEDS: LOSARTAN 50 MG TABLET PO SCH (18:53)
[2019-01-01] MEDS: LATANOPROST 0.005% OPH SOLN 2.5 ML BOTTLE BOTH EYES SCH (20:48)
[2019-01-02] MEDS: FONDAPARINUX 2.5 MG/0.5 ML SYRINGE SUBCUT SCH (04:43)
[2019-01-02 05:22] LABS: Basophils % 0.2 % (0.0-0.8); Eosinophils # 0.1 10*3/uL (0.0-0.87); Eosinophils % 0.5 % (0.00-10.9); Hematocrit 28.3 VOL% (35.7-47.0); Hemoglobin 9.2 GM/DL (12.0-16.0); Immature Granulocytes % 1.4 %; Immature Granulocytes Absolute 0.21 #; Lymphocytes # 1.5 10*3/uL (1.4-4.0); Lymphocytes % 9.4 % (21.3-54.2); Mean Corpuscular HGB Conc 32.5 GM/DL (32-36); Mean Corpuscular Volume 87.1 FL (87-102); Mean Platelet Volume 10.1 FL (9.6-12.0); Monocytes % 10.1 % (1.7-12.7); Neutrophils % 78.4 % (38.7-73.9); Platelet Count 258 T/CUMM (130-400); Red Blood Count 3.25 MC/CUMM (3.8-5.5); Red Cell Distribution Width 15.2 % (9.3-17.3); White Blood Count 15.4 T/CUMM (4-12)
[2019-01-02 05:53] LABS: Albumin 2.6 G/DL (3.4-5.0); Calcium 9.4 MG/DL (8.5-10.1); Osmolality,Calculated 277.5 MOS/KG (273-304); Total Protein 6.5 G/DL (6.4-8.3)
[2019-01-02] MEDS: SERTRALINE 100 MG TABLET PO SCH ×2 (10:01→21:44)
[2019-01-02] MEDS: buPROPion SR 150 MG TABLET PO SCH (10:01)
[2019-01-02] MEDS: amLODIPine 10 MG TABLET PO SCH (10:01)
[2019-01-02] MEDS: MAGNESIUM CHLORIDE 64 MG TABLET PO SCH ×2 (10:01→21:45)
[2019-01-02] MEDS: METOPROLOL TARTRATE 25 MG TABLET PO SCH ×2 (10:01→21:45)
[2019-01-02] MEDS: hydrALAZINE 25 MG TABLET PO SCH ×2 (10:01→21:45)
[2019-01-02] MEDS: busPIRone 5 MG TABLET PO PRN (14:07)
[2019-01-02 14:22] LABS: Apearance,Urine CLEAR (Clear); Bilirubin,Urine Negative (Negative); Blood, Urine Negative (Negative); Glucose,Urine (UA) Negative (Negative); Ketones,Urine 5 mg/dL (Negative); Mucus,Urine Occasional /LPF (Occasional); Nitrite,Urine Negative (Negative); Protein,Urine Negative; RBC,Urine 2 /HPF (0-4); Squamous Epithelial Cell,Urine Occasional /HPF (0-10); Urine Color Yellow (Yellow); Urine Specific Gravity 1.013 (1.001-1.035); Urine Urobilinogen < 2.0 EU/DL (0.2-1.0); WBC,Urine 9 /HPF (0-6)
[2019-01-02] MEDS: LOSARTAN 50 MG TABLET PO SCH (18:26)
[2019-01-02] MEDS: LATANOPROST 0.005% OPH SOLN 2.5 ML BOTTLE BOTH EYES SCH (21:45)
[2019-01-03] MEDS: FONDAPARINUX 2.5 MG/0.5 ML SYRINGE SUBCUT SCH (04:47)
[2019-01-03 05:16] LABS: Basophils % 0.1 % (0.0-0.8); Eosinophils # 0.1 10*3/uL (0.0-0.87); Eosinophils % 0.4 % (0.00-10.9); Hematocrit 29.3 VOL% (35.7-47.0); Hemoglobin 9.3 GM/DL (12.0-16.0); Immature Granulocytes % 1.3 %; Immature Granulocytes Absolute 0.21 #; Lymphocytes # 1.2 10*3/uL (1.4-4.0); Lymphocytes % 7.8 % (21.3-54.2); Mean Corpuscular HGB Conc 31.7 GM/DL (32-36); Mean Corpuscular Volume 85.9 FL (87-102); Mean Platelet Volume 10.6 FL (9.6-12.0); Monocytes % 10.8 % (1.7-12.7); Neutrophils % 79.6 % (38.7-73.9); Platelet Count 299 T/CUMM (130-400); Red Blood Count 3.41 MC/CUMM (3.8-5.5); White Blood Count 15.6 T/CUMM (4-12)
[2019-01-03 05:35] LABS: Albumin 2.4 G/DL (3.4-5.0); Bilirubin,Total 0.9 MG/DL (0.2-1.0); Calcium 8.9 MG/DL (8.5-10.1); Osmolality,Calculated 282.3 MOS/KG (273-304); Total Protein 6.4 G/DL (6.4-8.3)
[2019-01-03] MEDS ORDERED: POTASSIUM CHLORIDE 20 MEQ TABLET PO ONE (08:33)
[2019-01-03] MEDS: METOPROLOL TARTRATE 25 MG TABLET PO SCH ×2 (09:25→20:51)
[2019-01-03] MEDS: amLODIPine 10 MG TABLET PO SCH (09:25)
[2019-01-03] MEDS: MAGNESIUM CHLORIDE 64 MG TABLET PO SCH ×2 (09:25→20:51)
[2019-01-03] MEDS: SERTRALINE 100 MG TABLET PO SCH ×2 (09:25→20:51)
[2019-01-03] MEDS: POTASSIUM CHLORIDE RIDER 10 MEQ in PREMIX 1 EACH IV SCH ×2 (09:25→12:04)
[2019-01-03] MEDS: buPROPion SR 150 MG TABLET PO SCH (09:25)
[2019-01-03] MEDS: hydrALAZINE 25 MG TABLET PO SCH ×2 (09:25→20:51)
[2019-01-03] MEDS: ONDANSETRON 4 MG/2 ML VIAL IV PRN (11:33)
[2019-01-03] MEDS: POTASSIUM CHLORIDE 20 MEQ TABLET PO PRN ×2 (16:03→17:28)
[2019-01-03] MEDS: busPIRone 5 MG TABLET PO PRN (20:51)
[2019-01-03] MEDS: LOSARTAN 50 MG TABLET PO SCH (20:51)
[2019-01-03] MEDS: LATANOPROST 0.005% OPH SOLN 2.5 ML BOTTLE BOTH EYES SCH (20:51)
[2019-01-04] MEDS: FONDAPARINUX 2.5 MG/0.5 ML SYRINGE SUBCUT SCH (03:33)
[2019-01-04 05:15] LABS: Albumin 2.4 G/DL (3.4-5.0); Calcium 8.7 MG/DL (8.5-10.1); Osmolality,Calculated 278.5 MOS/KG (273-304); Total Protein 6.4 G/DL (6.4-8.3)
[2019-01-04 06:20] LABS: Basophils % 0.1 % (0.0-0.8); Eosinophils # 0.2 10*3/uL (0.0-0.87); Eosinophils % 1.1 % (0.00-10.9); Hematocrit 29.4 VOL% (35.7-47.0); Hemoglobin 9.2 GM/DL (12.0-16.0); Immature Granulocytes % 1.1 %; Immature Granulocytes Absolute 0.15 #; Lymphocytes # 1.1 10*3/uL (1.4-4.0); Lymphocytes % 7.7 % (21.3-54.2); Mean Corpuscular HGB Conc 31.3 GM/DL (32-36); Mean Corpuscular Volume 88.8 FL (87-102); Mean Platelet Volume 10.9 FL (9.6-12.0); Monocytes % 10.5 % (1.7-12.7); Neutrophils % 79.5 % (38.7-73.9); Platelet Count 308 T/CUMM (130-400); Red Blood Count 3.31 MC/CUMM (3.8-5.5); Red Cell Distribution Width 15.4 % (9.3-17.3)
[2019-01-04] MEDS ORDERED: APIXABAN 5 MG TABLET PO SCH (09:30)
[2019-01-04] MEDS: MAGNESIUM CHLORIDE 64 MG TABLET PO SCH (10:15)
[2019-01-04] MEDS: hydrALAZINE 25 MG TABLET PO SCH (10:15)
[2019-01-04] MEDS: buPROPion SR 150 MG TABLET PO SCH (10:15)
[2019-01-04] MEDS: SERTRALINE 100 MG TABLET PO SCH (10:16)
[2019-01-04] MEDS: METOPROLOL TARTRATE 25 MG TABLET PO SCH (10:16)
[2019-01-04] MEDS: amLODIPine 10 MG TABLET PO SCH (10:20)
[2019-01-04 12:46] VITALS: BP 164/74
== END 2019-01-04 13:03 | disposition home health service (06) | DRG 492 ==
LOC: N.ED 18:32 → N.EDINP 19:51 → N.3E 20:50
PROVIDERS: ADMIT Family Medicine; ATTEND Family Medicine